=== PATIENT | female | born 1940 | race African-American/Black ===

== ENCOUNTER → 2017-01-12 | Outpatient (CLI) | payer OTHER, MEDICAID ==
[2017-01-12 12:57] LABS: BILIRUBIN,URINE NEGATIVE (NEGATIVE); BLOOD/HEMOGLOBIN,URINE NEGATIVE (NEGATIVE); GLUCOSE, URINE NEGATIVE (NEGATIVE); KETONES,URINE NEGATIVE (NEGATIVE); LEUKOCYTE ESTERASE ,URINE NEGATIVE (NEGATIVE); NITRITES,URINE NEGATIVE (NEGATIVE); PROTEIN,URINE NEGATIVE (NEGATIVE); UROBILINOGEN,URINE NORMAL (NORMAL)
[2017-01-12 12:57] LABS: BASOPHILS % (AUTO) 0.5 % (0.2-1.0); EOSINOPHILS # (AUTO) 0.1 x10^3/uL (0.0-0.2); EOSINOPHILS % (AUTO) 0.9 % (0.9-2.9); HEMATOCRIT 32.2 % (36.0-47.0); HEMOGLOBIN 10.7 g/dL (12.0-16.0); LYMPHOCYTES # (AUTO) 3.1 X10^3/uL (1.3-2.9); LYMPHOCYTES % (AUTO) 29.5 % (21.0-51.0); MEAN CORPUSCULAR HEMOGLOBIN 29.3 pg (27.0-34.0); MEAN CORPUSCULAR HGB CONC 33.2 g/dL (33.0-35.0); MEAN PLATELET VOLUME 7.8 fL (7.4-11.0); MONOCYTES # (AUTO) 0.7 x10^3/uL (0.3-0.8); MONOCYTES % (AUTO) 6.9 % (0.0-13.0); NEUTROPHILS # (AUTO) 6.6 x10^3/uL (2.2-4.8); NEUTROPHILS % (AUTO) 62.2 % (42.0-75.0); PLATELET COUNT 323 X10^3/uL (150.0-450.0); RED BLOOD COUNT 3.65 X10^6/uL (3.5-5.4); RED CELL DISTRIBUTION WIDTH 14.6 % (11.6-16.5); WHITE BLOOD COUNT 10.6 X10^3/uL (3.6-10.0)
[2017-01-12 13:07] LABS: APPEARANCE,URINE CLEAR (CLEAR); COLOR,URINE PALE YELLOW (YELLOW); RBC,URINE NONE SEEN /HPF (NEGATIVE); SQUAMOUS EPITHELIAL CELL,UR FEW /HPF (NEGATIVE)
[2017-01-12 13:08] LABS: ALANINE AMINOTRANSFERASE 17 Units/L (12-78); ALBUMIN 3.1 g/dL (3.4-5.0); ALKALINE PHOSPHATASE 91 Units/L (46-116); ASPARTATE AMINO TRANSFERASE 15 Units/L (15-37); BLOOD UREA NITROGEN 23 mg/dL (7-18); CALCIUM 8.5 mg/dL (8.5-10.1); CARBON DIOXIDE 28.5 mmol/L (21-32); CHLORIDE 108 mmol/L (98-107); COR CA(FOR HYPOALB) 9.2 mg/dL (8.5-10.1); CREATININE 1.23 mg/dL (0.55-1.02); GLUCOSE 95 mg/dL (65-99); SODIUM 143 mmol/L (136-145); TOTAL PROTEIN 6.9 g/dL (6.4-8.2); eGFR BLACK RACES 55 (>60); eGFR NON BLACK RACES 45 (>60)
[2017-01-12 13:08] LABS: BACTERIA,URINE NEGATIVE /HPF (NEGATIVE)
--- NOTE | 2017-01-12 13:11 | RAD ---
HISTORY: Preop. Study: PA and lateral chest. Comparison: None. Findings: The trachea is midline. The cardiac silhouette is unremarkable. Ectatic thoracic aorta with calcif ication of the aortic knob. Chronic emphysematous changes. Bibasilar scarring versus atelectasis. No obvious focal consolidation, pleural effusion, or pneumothorax. The bony thorax is unremarkable. IMPRESSION: 1. No acute cardiopulmonary disease. Reported By:
== END ==
LOC: LAB 11:30
PROVIDERS: ATTEND Specialist
DX: Z01.818 Encounter for other preprocedural examination (principal); Z01.810 Encounter for preprocedural cardiovascular examination; Z01.811 Encounter for preprocedural respiratory examination; Z79.899 Other long term (current) drug therapy; Z11.8 Encounter for screening for other infectious and parasitic diseases; M17.12 Unilateral primary osteoarthritis, left knee
CPT/HCPCS: 36415; 71020; 80053; 81001; 85025; 86850; 86900; 86901; 87641; 93005; 93010

== ENCOUNTER 2017-01-16 08:00 | Inpatient (IN) | payer OTHER, MEDICAID ==
[2017-01-16] MEDS ORDERED: D5 LR 1000 ML 1,000 ML IV ONE (08:08)
[2017-01-16] MEDS ORDERED: NS 100 ML IV 100 ML IV ONE ×2 (08:09→17:39)
[2017-01-16] MEDS ORDERED: DILAUDID INJ ONE (08:10)
[2017-01-16] MEDS ORDERED: VANCOMYCIN HCL 500 MG VIAL ONE (08:10)
[2017-01-16] MEDS ORDERED: FENTANYL INJ 250 mcg ONE (08:11)
[2017-01-16] MEDS ORDERED: MARCAINE 0.25% WITH EPI IJ ONE (08:20)
[2017-01-16 08:53] VITALS: BMI 29.2
[2017-01-16] MEDS ORDERED: NORCURON INJ 10 MG VIAL ONE (09:37)
[2017-01-16] MEDS ORDERED: VERSED ONE (09:37)
[2017-01-16] MEDS ORDERED: ZOFRAN INJ 4 MG VIAL ONE (09:37)
[2017-01-16] MEDS ORDERED: NEOSTIGMINE INJ ONE (09:37)
[2017-01-16] MEDS ORDERED: QUELICIN (OR ANECTINE) ONE (09:37)
[2017-01-16] MEDS ORDERED: ULTANE GAS IN ONE (09:37)
[2017-01-16] MEDS ORDERED: ROBINUL ONE (09:37)
[2017-01-16] MEDS ORDERED: DIPRIVAN VIAL ONE (09:37)
[2017-01-16] MEDS ORDERED: SUPRANE IN ONE (09:37)
--- NOTE | 2017-01-16 10:47 | DR.CONSULT ---
Consult - Consultation for Day of: Date: 01/16/17 - Chief Complaint Chief Complaint: They can't get an IV - Allergies Allergies/Adverse Reactions: Allergies Allergy/AdvReac Type Severity Reaction Status Date / Time acetaminophen Allergy Severe NAUSEA Verified 01/16/17 08:56 [From Darvocet-N] codeine Allergy Severe RASH Verified 01/16/17 08:56 propoxyphene Allergy Severe NAUSEA Verified 01/16/17 08:56 [From Darvocet-N] quinine Allergy Severe ANAPHALEXIS Verified 01/16/17 08:56 REACTION Penicillins AdvReac Intermediate RASH Verified 01/16/17 08:56 Sulfa (Sulfonamide AdvReac Intermediate RASH Verified 01/16/17 08:56 Antibiotics) [SULFA] tramadol [From Ultram] AdvReac Intermediate NAUSEA Verified 01/16/17 08:56 - Past Surgical History Surgical History: Appendectomy, Hysterectomy - Family History Family Medical History: Cancer, Heart Failure, Hypertension - Social History Does patient currently use any type of tobacco product: No Have you used tobacco products in the last 12 months: No Type of Tobacco Use: None Does any household member use tobacco: No Alcohol Use: Rarely Drug Use: None - Medications Home Medications: Allopurinol [ZYLOPRIM tab 100 mg *] 100 mg PO DAILY 01/16/17 [History Confirmed 01/16/17] Hydrocodone-Acet 10/325 mg [[place] 10/325 Tab] 1 tab PO Q6H PRN 01/16/17 [ History Confirmed 01/16/17] Levothyroxine Sodium [SYNTHROID 50 mcg *] 1 tab PO DAILYAC 01/16/17 [History Confirmed 01/16/17] Metoprolol Succinate [Toprol Xl] 25 mg PO BID 01/16/17 [History Confirmed ] Mirtazapine 15 mg PO DAILY 01/16/17 [History Confirmed 01/16/17] Omeprazole [Prilosec] 20 mg PO BID 01/16/17 [History Confirmed 01/16/17] Ondansetron HCl [Zofran Tab 4 mg] 4 mg PO DAILY PRN 01/16/17 [History Confirmed 01/16/17] Tizanidine HCl [Zanaflex 4 mg] 4 mg PO QID PRN 01/16/17 [History Confirmed 01/16] - Review of Systems Constitutional: No Symptoms Reported Eyes: No Symptoms Reported Respiratory: No Symptoms Reported Cardiovascular: See HPI Gastrointestinal: No Symptoms Reported Genitourinary: No Symptoms Reported Musculoskeletal: Leg Pain Skin: No Symptoms Reported Neurological: No Symptoms Reported - Physical Exam Vital Signs: Temperature 97.7 F Pulse Rate 68 Respiratory Rate 16 Blood Pressure 161/89 O2 Sat by Pulse Oximetry 98 Oriented: Normal, Time, Person, Place Eyes: Normal Ear: Normal Nose: Normal Throat: Normal Respiratory: Clear Throughout Cardiovascular: Normal : Normal Auscultation: Bowel Sounds: Normal Palpation: Normal Tenderness: Normal Skin: Bruising Musculoskeletal: Normal Psychiatric: Normal Mood Description: Calm Affect: Angry Speech Pattern: Clear - Plan Plan: Poor Venous Access. PICC Procedures (ALL) - Central Line Placement PCM.CLCO: written consent Time out performed: Yes Patient placed pm monitor/pulse ox: Yes prep: mask, gown, gloves Centrial line prep: chlorhexidine scrub Local anesthsia used: lidocaine 2% Ultrasound used for placement: Yes (Left bassicillic Patent ) Central line lumen ininserted: double (5Fr PICC power) Post procedure: good blood return, all ports aspirated, flushed,capped, sterile dressing applied Post procedure xray: tip oc catheter in good position, no pneumothorax seen Patient tolerated procedure: Yes Complications: none
--- NOTE | 2017-01-16 11:00 | RAD ---
HISTORY: PICC line placement. Study: Portable chest. Comparison: Chest x-ray dated January 12, 2017. Findings: Interval placement of a left PICC line whose tip overlies the takeoff of the left subclavian vein. T he trachea is midline. The cardiac silhouette is unremarkable. No obvious focal consolidation, ple ural effusion, or pneumothorax. The bony thorax is unremarkable. IMPRESSION: 1. No acute cardiopulmonary disease. 2. PICC line that should be advanced approximately 5 cm. Reported By:
[2017-01-16] MEDS ORDERED: NS IRRIGATION 3000 ML 3,000 ML with BACITRACIN VIAL 50,000 UNT IR ONE ×4 (11:05)
[2017-01-16] MEDS ORDERED: NS IRRIGATION 1000 ML 1,000 ML with BACITRACIN VIAL 50,000 UNT IR ONE ×2 (11:05)
[2017-01-16] MEDS ORDERED: PHENERGAN INJ 25 MG IVP PRN (13:12)
[2017-01-16] MEDS ORDERED: DILAUDID INJ IVP PRN (13:12)
[2017-01-16] MEDS ORDERED: BENADRYL INJ 50 MG VIAL IVP PRN (13:12)
[2017-01-16] MEDS ORDERED: ZOFRAN INJ 4 MG VIAL IVP PRN (13:12)
[2017-01-16] MEDS ORDERED: REGLAN INJ 10 MG VIAL IVP PRN (13:12)
[2017-01-16] MEDS ORDERED: [UNRECOGNIZED DRUG - OTHER] IVP PRN (13:15)
[2017-01-16] MEDS ORDERED: NARCAN INJ IVP ONE ×3 (13:20→17:35)
[2017-01-16] MEDS: NARCAN INJ ONE ×2 (13:30→14:20)
[2017-01-16] MEDS ORDERED: NAROPIN EPIDURAL 0.2% 100 ML ONE (13:51)
[2017-01-16] MEDS ORDERED: NAROPIN EPIDURAL 0.2% 400 MG, NS 250 ML IV 200 ML EPI PRN ×2 (15:00)
[2017-01-16] MEDS ORDERED: Q PUMP EPI ONE (15:00)
[2017-01-16] MEDS ORDERED: NS 250 ML IV 250 ML IV ONE ×2 (15:19→22:31)
[2017-01-16 16:57] LABS: ABG BASE EXCESS 2.6 mmol/L (-2.0-2.0)
[2017-01-16 16:58] LABS: ABG ALLEN TEST POS
[2017-01-16] MEDS ORDERED: NARCAN INJ ONE (17:05)
[2017-01-16] MEDS ORDERED: NS 1000 ML 1,000 ML ONE (17:39)
[2017-01-16] MEDS ORDERED: NARCAN INJ 2 MG in NS 500 ML IV 500 ML IV ONE (17:50)
--- NOTE | 2017-01-16 18:09 | DR.CONSULT ---
Consult - Consultation for Day of: Date: 01/16/17 - Chief Complaint Chief Complaint: 76 FEMALE S/P LEFT TOTAL KNEE REPLACEMENT PER DR BENITES, WILL CONTINUE HOME MEDS, POST ORTHO PLAN OF CARE, PT, WOUND CARE. 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 - Allergies Allergies/Adverse Reactions: Allergies Allergy/AdvReac Type Severity Reaction Status Date / Time acetaminophen Allergy Severe NAUSEA Verified 01/16/17 08:56 [From Darvocet-N] codeine Allergy Severe RASH Verified 01/16/17 08:56 propoxyphene Allergy Severe NAUSEA Verified 01/16/17 08:56 [From Darvocet-N] quinine Allergy Severe ANAPHALEXIS Verified 01/16/17 08:56 REACTION Penicillins AdvReac Intermediate RASH Verified 01/16/17 08:56 Sulfa (Sulfonamide AdvReac Intermediate RASH Verified 01/16/17 08:56 Antibiotics) [SULFA] tramadol [From Ultram] AdvReac Intermediate NAUSEA Verified 01/16/17 08:56 - Past Medical History Past Medical History: Arthritis, GERD, Hypertension, Hypothyroidism - Past Surgical History Surgical History: Appendectomy, Hysterectomy - Family History Family Medical History: Cancer, Heart Failure, Hypertension - Social History Does patient currently use any type of tobacco product: No Have you used tobacco products in the last 12 months: No Type of Tobacco Use: None Does any household member use tobacco: No Alcohol Use: Rarely Drug Use: None - Medications Home Medications: Allopurinol [ZYLOPRIM tab 100 mg *] 100 mg PO DAILY 01/16/17 [History Confirmed 01/16/17] Hydrocodone-Acet 10/325 mg [[place] 10/325 Tab] 1 tab PO Q6H PRN 01/16/17 [ History Confirmed 01/16/17] Levothyroxine Sodium [SYNTHROID 50 mcg *] 1 tab PO DAILYAC 01/16/17 [History Confirmed 01/16/17] Metoprolol Succinate [Toprol Xl] 25 mg PO BID 01/16/17 [History Confirmed ] Mirtazapine 15 mg PO DAILY 01/16/17 [History Confirmed 01/16/17] Omeprazole [Prilosec] 20 mg PO BID 01/16/17 [History Confirmed 01/16/17] Ondansetron HCl [Zofran Tab 4 mg] 4 mg PO DAILY PRN 01/16/17 [History Confirmed 01/16/17] Tizanidine HCl [Zanaflex 4 mg] 4 mg PO QID PRN 01/16/17 [History Confirmed 01/16] - Review of Systems Constitutional: No Symptoms Reported Eyes: No Symptoms Reported ENT: No Symptoms Reported Respiratory: No Symptoms Reported Cardiovascular: No Symptoms Reported Gastrointestinal: No Symptoms Reported Genitourinary: No Symptoms Reported Musculoskeletal: Leg Pain Skin: Wound Neurological: No Symptoms Reported - Physical Exam Vital Signs: Temperature 97.2 F Pulse Rate 60 Respiratory Rate 20 Blood Pressure 131/70 O2 Sat by Pulse Oximetry 94 Oriented: Person Eyes: Normal Ear: Normal Nose: Normal Throat: Normal Respiratory: RLL Diminished, LLL Diminished Cardiovascular: Normal : Normal Auscultation: Bowel Sounds: Normal Palpation: Normal Skin: Wound Musculoskeletal: Left, Knee Speech Pattern: Clear, Appropriate - Plan Plan: RESUME HOME MEDICATION FOR HTN, HYPOTHYROIDISM, AND GERD. FOLLOW ORTHO POST OPERATIVE PLAN OF CARE
[2017-01-16] MEDS: NS 1000 ML 1,000 ML IV SCH (18:20)
[2017-01-16] MEDS ORDERED: NS IV ONE (18:40)
[2017-01-16] MEDS ORDERED: NARCAN IV ONE (18:40)
[2017-01-16 19:15] LABS: ABG BASE EXCESS 2.2 mmol/L (-2.0-2.0); ABG HCO3 28.7 mmol/L (22-26)
[2017-01-16 19:16] LABS: ABG ALLEN TEST POS
[2017-01-16] MEDS: ZOFRAN INJ 4 MG VIAL IVP PRN (19:37)
[2017-01-16] MEDS: PriLOSEC PO SCH (21:08)
[2017-01-16] MEDS: TOPROL XL PO SCH (21:08)
[2017-01-16] MEDS: VANCOMYCIN 1 GM PREMIX (ADDVANTAGE) 250 ML IV SCH (21:08)
[2017-01-17 07:43] LABS: BASOPHILS # (AUTO) 0.1 X10^3/uL (0.0-0.1); EOSINOPHILS # (AUTO) 0.1 x10^3/uL (0.0-0.2); EOSINOPHILS % (AUTO) 1.1 % (0.9-2.9); HEMOGLOBIN 11.5 g/dL (12.0-16.0); LYMPHOCYTES # (AUTO) 0.9 X10^3/uL (1.3-2.9); MEAN CORPUSCULAR HEMOGLOBIN 28.9 pg (27.0-34.0); MEAN PLATELET VOLUME 7.6 fL (7.4-11.0); RED BLOOD COUNT 3.97 X10^6/uL (3.5-5.4)
[2017-01-17 07:44] LABS: BLOOD UREA NITROGEN 17 mg/dL (7-18); CARBON DIOXIDE 30.3 mmol/L (21-32); CHLORIDE 109 mmol/L (98-107); CREATININE 1.22 mg/dL (0.55-1.02); GLUCOSE 82 mg/dL (65-99); SODIUM 146 mmol/L (136-145); eGFR BLACK RACES 55 (>60); eGFR NON BLACK RACES 46 (>60)
[2017-01-17 07:51] LABS: BASOPHILS % (AUTO) 0.4 % (0.2-1.0); HEMATOCRIT 35.1 % (36.0-47.0); LYMPHOCYTES % (AUTO) 6.7 % (21.0-51.0); MEAN CORPUSCULAR HGB CONC 32.8 g/dL (33.0-35.0); MEAN CORPUSCULAR VOLUME 88.3 fL (80.0-100.0); MONOCYTES # (AUTO) 0.9 x10^3/uL (0.3-0.8); MONOCYTES % (AUTO) 6.8 % (0.0-13.0); NEUTROPHILS # (AUTO) 11.8 x10^3/uL (2.2-4.8); PLATELET COUNT 160 X10^3/uL (150.0-450.0); RED CELL DISTRIBUTION WIDTH 14.7 % (11.6-16.5)
[2017-01-17 08:17] LABS: WHITE BLOOD COUNT 13.8 X10^3/uL (3.6-10.0)
[2017-01-17 08:19] LABS: HYPOCHROMASIA SLIGHT; PLATELET MORPHOLOGY COMMENT NORMAL (NORMAL)
[2017-01-17] MEDS: LOVENOX INJ 30 MG SYR SC SCH ×2 (08:33→20:32)
[2017-01-17] MEDS: VANCOMYCIN 1 GM PREMIX (ADDVANTAGE) 250 ML IV SCH (08:33)
[2017-01-17] MEDS: TOPROL XL PO SCH ×2 (08:34→20:32)
[2017-01-17] MEDS: PriLOSEC PO SCH ×2 (08:34→20:33)
[2017-01-17] MEDS ORDERED: PATIENT'S HOME MEDICATION (Tizanidine Hcl [Zanaflex 4 Mg] 4 MG) PO PRN (09:38)
[2017-01-17] MEDS: ZYLOPRIM PO SCH (10:30)
[2017-01-17] MEDS: REMERON PO SCH (10:33)
[2017-01-17] MEDS: ZOFRAN INJ 4 MG VIAL IVP PRN ×2 (11:41→20:36)
[2017-01-17] MEDS: NORCO 10/325 TAB PO PRN (11:48)
[2017-01-17] MEDS: SYNTHROID 50 mcg TAB PO SCH (17:37)
--- NOTE | 2017-01-17 17:56 | RAD ---
HISTORY: PICC line placement Study: Portable chest Comparison: 01/16/2017 Findings: The heart is normal. The pulmonary vessels are normal. No consolidation or effusion is seen. There i s no pneumothorax and the bones are intact. IMPRESSION: Status post removal of the left PICC line otherwise , stable with no acute abnormality seen. Reported By:
[2017-01-17] MEDS: NS 1000 ML 1,000 ML IV SCH (18:31)
[2017-01-17] MEDS ORDERED: XYLOCAINE 1 % (PLAIN) ONE (19:08)
--- NOTE | 2017-01-17 19:50 | RAD ---
HISTORY: 76-year-old female status post PICC line placement. Study: Frontal view of the chest. Comparison: Chest radiograph this date at 5:50 p.m.. Findings: Right upper extremity PICC with distal tip overlying the confluence of the subclavian and internal j ugular veins on the right. This is within the central venous system, however, repositioning is recom mended. No other significant interval change. IMPRESSION: 1. Right upper extremity PICC line as described above, repositioning recommended. Reported By:
--- NOTE | 2017-01-17 20:23 | DR.H&P ---
H&P - History & Physical for Day of: H&P Date: 01/17/17 - Chief Complaint Chief Complaint: no iv access - Allergies Allergies/Adverse Reactions: Allergies Allergy/AdvReac Type Severity Reaction Status Date / Time acetaminophen Allergy Severe NAUSEA Verified 01/16/17 08:56 [From Darvocet-N] codeine Allergy Severe RASH Verified 01/16/17 08:56 propoxyphene Allergy Severe NAUSEA Verified 01/16/17 08:56 [From Darvocet-N] quinine Allergy Severe ANAPHALEXIS Verified 01/16/17 08:56 REACTION Penicillins AdvReac Intermediate RASH Verified 01/16/17 08:56 Sulfa (Sulfonamide AdvReac Intermediate RASH Verified 01/16/17 08:56 Antibiotics) [SULFA] tramadol [From Ultram] AdvReac Intermediate NAUSEA Verified 01/16/17 08:56 - History of Present Illness History of Present Illness: s/p tka. left picc inserted in the immediate preoperative period for i.v. access. catheter was trimmed to 40cm and drerssed with 5cm out. was called at 1730 today to access possible nonfunctioning picc. CXR was ordered and read as picc removal. I arrived and found picc to be in 3 overlapping loops approximately 3cm in diameter under a tegaderm with 6cm remaining under the skin. the picc was removed and right picc placed (see addendum for picc note). - Past Medical History Past Medical History: Arthritis, GERD, Hypertension, Hypothyroidism - Past Surgical History Surgical History: Appendectomy, Hysterectomy - Family History Family Medical History: Cancer, Heart Failure, Hypertension - Social History Does patient currently use any type of tobacco product: No Have you used tobacco products in the last 12 months: No Type of Tobacco Use: None Does any household member use tobacco: No Alcohol Use: Rarely Drug Use: None - Medications Home Medications: Allopurinol [ZYLOPRIM tab 100 mg *] 100 mg PO DAILY 01/16/17 [History Confirmed 01/16/17] Hydrocodone-Acet 10/325 mg [[place] 10/325 Tab] 1 tab PO Q6H PRN 01/16/17 [ History Confirmed 01/16/17] Levothyroxine Sodium [SYNTHROID 50 mcg *] 1 tab PO DAILYAC 01/16/17 [History Confirmed 01/16/17] Metoprolol Succinate [Toprol Xl] 25 mg PO BID 01/16/17 [History Confirmed ] Mirtazapine 15 mg PO DAILY 01/16/17 [History Confirmed 01/16/17] Omeprazole [Prilosec] 20 mg PO BID 01/16/17 [History Confirmed 01/16/17] Ondansetron HCl [Zofran Tab 4 mg] 4 mg PO DAILY PRN 01/16/17 [History Confirmed 01/16/17] Tizanidine HCl [Zanaflex 4 mg] 4 mg PO QID PRN 01/16/17 [History Confirmed 01/16] - Review of Systems Skin: Bruising (left upper extrem), Other (4x6cm bruise at left picc site. no tenderness.) - Physical Exam Vital Signs: Temperature 98.0 F Pulse Rate [Right Brachial] 73 Pulse Rate 60 Respiratory Rate 16 Blood Pressure [Right Arm] 162/72 Blood Pressure 131/70 O2 Sat by Pulse Oximetry 95 Oriented: Person Cardiovascular: Normal : Normal Tenderness: Normal - Assessment/Plan (1) S/P total knee arthroplasty Qualifiers: Laterality: L Status: Acute Plan: picc insertion right side Procedures (ALL) - Central Line Placement PCM.CLCO: written consent Time out performed: Yes Patient placed pm monitor/pulse ox: Yes MD prep: mask, gown, gloves, other Centrial line prep: chlorhexidine scrub Local anesthsia used: lidocane 1% (1cc) Ultrasound used for placement: Yes (right basillic) Central line lumen ininserted: double (trimmed to 45cm. 11cm out initially, pulled 3cm to 14cm out after cxr. good blood return.) Post procedure: good blood return, all ports aspirated, flushed,capped, sterile dressing applied Post procedure xray: tip oc catheter in good position, no pneumothorax seen Patient tolerated procedure: Yes Complications: none
[2017-01-18 05:47] LABS: BASOPHILS % (AUTO) 0.3 % (0.2-1.0); EOSINOPHILS # (AUTO) 0.3 x10^3/uL (0.0-0.2); EOSINOPHILS % (AUTO) 2.8 % (0.9-2.9); HEMATOCRIT 27.7 % (36.0-47.0); HEMOGLOBIN 9.1 g/dL (12.0-16.0); LYMPHOCYTES % (AUTO) 9.9 % (21.0-51.0); MEAN CORPUSCULAR HEMOGLOBIN 29.3 pg (27.0-34.0); MEAN CORPUSCULAR HGB CONC 32.9 g/dL (33.0-35.0); MEAN CORPUSCULAR VOLUME 89.2 fL (80.0-100.0); MONOCYTES # (AUTO) 0.8 x10^3/uL (0.3-0.8); MONOCYTES % (AUTO) 8.2 % (0.0-13.0); NEUTROPHILS # (AUTO) 7.7 x10^3/uL (2.2-4.8); NEUTROPHILS % (AUTO) 78.8 % (42.0-75.0); PLATELET COUNT 181 X10^3/uL (150.0-450.0); RED CELL DISTRIBUTION WIDTH 14.6 % (11.6-16.5); WHITE BLOOD COUNT 9.8 X10^3/uL (3.6-10.0)
[2017-01-18 07:14] LABS: CARBON DIOXIDE 27.4 mmol/L (21-32); CREATININE 1.2 mg/dL (0.55-1.02)
[2017-01-18] MEDS: LOVENOX INJ 30 MG SYR SC SCH ×2 (08:10→21:17)
[2017-01-18] MEDS: NS 1000 ML 1,000 ML IV SCH ×2 (08:10→17:19)
[2017-01-18] MEDS: PriLOSEC PO SCH ×2 (08:13→21:16)
[2017-01-18] MEDS: REMERON PO SCH (08:14)
[2017-01-18] MEDS: TOPROL XL PO SCH ×2 (08:14→21:16)
[2017-01-18] MEDS: ZYLOPRIM PO SCH (08:14)
[2017-01-18] MEDS: ZOFRAN TAB 4 MG PO PRN ×2 (08:29→23:13)
[2017-01-18] MEDS: NORCO 10/325 TAB PO PRN ×3 (08:29→23:13)
--- NOTE | 2017-01-18 13:04 | PCM.PROG ---
Progress Note - Progress Note for Day of Date: 01/18/17 - Subjective Subjective: left knee pain, otherwise states she feels well. 76WF ADMITTED FOR LEFT KNEE TOTAL REPLACEMET. PLAN TO CONTINUE ORTHO POST OPERATIVE PLAN OF CARE AND CHANGE TO FLOOR STATUS TODAY. - Past Medical Family Social History Past Med/Fam/Surg Hx: No changes since H&P Allergies: Allergies acetaminophen [From Darvocet-N] Allergy (Severe, Verified 01/16/17 08:56) NAUSEA codeine Allergy (Severe, Verified 01/16/17 08:56) RASH propoxyphene [From Darvocet-N] Allergy (Severe, Verified 01/16/17 08:56) NAUSEA quinine Allergy (Severe, Verified 01/16/17 08:56) ANAPHALEXIS REACTION Penicillins Adverse Reaction (Intermediate, Verified 01/16/17 08:56) RASH Sulfa (Sulfonamide Antibiotics) [SULFA] Adverse Reaction (Intermediate, Verified 01/16/17 08:56) RASH tramadol [From Ultram] Adverse Reaction (Intermediate, Verified 01/16/17 08:56) NAUSEA - Review of Systems ROS: No change since H&P - Vital Signs and I&O's Vital Signs: Temperature 98.4 F Pulse Rate [Right Brachial] 76 Pulse Rate 83 Respiratory Rate 24 Blood Pressure [Right Arm] 115/57 Blood Pressure 131/70 O2 Sat by Pulse Oximetry 100 Intake and Output: Intake & Output 01/16/17 01/17/17 01/18/17 01/19/17 11:59 11:59 11:59 11:59 Intake Total 8801 5100 Output Total 0129 1153 Balance -8500 -321 - Physical Exam Oriented: Person Eyes: Normal Ear: Normal Nose: Normal Throat: Normal Respiratory: Normal Cardiovascular: Normal : Normal Auscultation: Bowel Sounds: Normal Tenderness: Normal Skin: Wound Musculoskeletal: Left, Knee Psychiatric: Normal Mood Description: Calm Affect: Angry Speech Pattern: Clear - Laboratory and Diagnostics Result Diagrams: 01/18/17 04:10 01/18/17 04:10 Labs: Laboratory WBC 9.8 X10^3/uL (3.6-10.0) 01/18/17 04:10 RBC 3.10 X10^6/uL (3.5-5.4) L 01/18/17 04:10 Hgb 9.1 g/dL (12.0-16.0) L 01/18/17 04:10 Hct 27.7 % (36.0-47.0) L 01/18/17 04:10 MCV 89.2 fL (80.0-100.0) 01/18/17 04:10 MCH 29.3 pg (27.0-34.0) 01/18/17 04:10 MCHC 32.9 g/dL (33.0-35.0) L 01/18/17 04:10 RDW 14.6 % (11.6-16.5) 01/18/17 04:10 Plt Count 181 X10^3/uL (150.0-450.0) 01/18/17 04:10 Plt Count Comment Adequate (ADEQUATE) 01/17/17 07:15 MPV 8.0 fL (7.4-11.0) 01/18/17 04:10 Neut % 78.8 % (42.0-75.0) H 01/18/17 04:10 Lymph % 9.9 % (21.0-51.0) L 01/18/17 04:10 [place] % 8.2 % (0.0-13.0) 01/18/17 04:10 Eos % 2.8 % (0.9-2.9) 01/18/17 04:10 Baso % 0.3 % (0.2-1.0) 01/18/17 04:10 Neut # 7.7 x10^3/uL (2.2-4.8) H 01/18/17 04:10 Lymph # 1.0 X10^3/uL (1.3-2.9) L 01/18/17 04:10 [place] # 0.8 x10^3/uL (0.3-0.8) 01/18/17 04:10 Eos # 0.3 x10^3/uL (0.0-0.2) H 01/18/17 04:10 Baso # 0.0 X10^3/uL (0.0-0.1) 01/18/17 04:10 Absolute Nucleated RBC 0.0 /100WBC 01/18/17 04:10 Plt Clumps, EDTA Few 01/17/17 07:15 Plt Morphology Comment Normal (NORMAL) 01/17/17 07:15 RBC Morphology Abnormal (NORMAL) A 01/17/17 07:15 Hypochromasia Slight A 01/17/17 07:15 Sample Site Right radial 01/16/17 19:05 ABG pH 7.350 (7.35-7.45) 01/16/17 19:05 ABG pCO2 52.0 mmHg (35.0-45.0) H* 01/16/17 19:05 ABG pO2 90.0 mmHg (80.0-100.0) 01/16/17 19:05 ABG HCO3 28.7 mmol/L (22-26) H 01/16/17 19:05 ABG O2 Saturation 97.0 % (90-100) 01/16/17 19:05 ABG Base Excess 2.2 mmol/L (-2.0-2.0) H 01/16/17 19:05 Aayush Test Pos 01/16/17 19:05 A-a Gradient 73.0 mmHg 01/16/17 19:05 FiO2 32.000 01/16/17 19:05 Blood Gas Comments Shahram well aw 01/16/17 19:05 Sodium 142 mmol/L (136-145) 01/18/17 04:10 Corrected Sodium 143 mmol/L (136-145) 01/18/17 04:10 Potassium 4.4 mmol/L (3.5-5.1) 01/18/17 04:10 Chloride 108 mmol/L (98-107) H 01/18/17 04:10 Carbon Dioxide 27.4 mmol/L (21-32) 01/18/17 04:10 BUN 13 mg/dL (7-18) 01/18/17 04:10 Creatinine 1.20 mg/dL (0.55-1.02) H 01/18/17 04:10 Est GFR (MDRD) Af Amer 56 (>60) L 01/18/17 04:10 Est GFR (MDRD) Non-Af 47 (>60) L 01/18/17 04:10 Glucose 129 mg/dL (65-99) H 01/18/17 04:10 Calcium 8.0 mg/dL (8.5-10.1) L 01/18/17 04:10 - Plan (1) S/P total knee arthroplasty Status: Acute Qualifiers: Laterality: L Plan: CONTINUE WOUND CARE, PT, AM LABS (2) CHF (congestive heart failure) Status: Chronic Qualifiers: Congestive heart failure type: C Congestive heart failure chronicity: C (3) COPD (chronic obstructive pulmonary disease) Status: Chronic Qualifiers: COPD type: C Chronic bronchitis type: C Emphysema type: E (4) GERD (gastroesophageal reflux disease) Status: Chronic Qualifiers: Esophagitis presence: E (5) HTN (hypertension) Status: Chronic Qualifiers: Hypertension type: H (6) Hypothyroidism Status: Chronic Qualifiers: Hypothyroidism type: H
[2017-01-18] MEDS: ZOFRAN INJ 4 MG VIAL IVP PRN (15:26)
[2017-01-18] MEDS: SYNTHROID 50 mcg TAB PO SCH (16:52)
[2017-01-18] MEDS: COLACE CAP 100 MG PO SCH (21:16)
[2017-01-18] MEDS: MILK OF MAGNESIA PO SCH (21:16)
[2017-01-18] MEDS: ZANAFLEX PO PRN (21:16)
[2017-01-19 06:11] LABS: BASOPHILS % (AUTO) 0.5 % (0.2-1.0); EOSINOPHILS # (AUTO) 0.3 x10^3/uL (0.0-0.2); EOSINOPHILS % (AUTO) 3.4 % (0.9-2.9); HEMATOCRIT 23.4 % (36.0-47.0); HEMOGLOBIN 7.8 g/dL (12.0-16.0); LYMPHOCYTES # (AUTO) 1.7 X10^3/uL (1.3-2.9); LYMPHOCYTES % (AUTO) 18.5 % (21.0-51.0); MEAN CORPUSCULAR HEMOGLOBIN 29.8 pg (27.0-34.0); MEAN CORPUSCULAR HGB CONC 33.4 g/dL (33.0-35.0); MEAN CORPUSCULAR VOLUME 89.2 fL (80.0-100.0); MEAN PLATELET VOLUME 8.7 fL (7.4-11.0); MONOCYTES # (AUTO) 0.6 x10^3/uL (0.3-0.8); NEUTROPHILS # (AUTO) 6.5 x10^3/uL (2.2-4.8); NEUTROPHILS % (AUTO) 70.6 % (42.0-75.0); PLATELET COUNT 169 X10^3/uL (150.0-450.0); RED BLOOD COUNT 2.62 X10^6/uL (3.5-5.4); RED CELL DISTRIBUTION WIDTH 14.4 % (11.6-16.5); WHITE BLOOD COUNT 9.3 X10^3/uL (3.6-10.0)
[2017-01-19 06:25] LABS: BLOOD UREA NITROGEN 17 mg/dL (7-18); CALCIUM 7.9 mg/dL (8.5-10.1); CARBON DIOXIDE 30.2 mmol/L (21-32); CHLORIDE 108 mmol/L (98-107); CREATININE 1.68 mg/dL (0.55-1.02); GLUCOSE 100 mg/dL (65-99); SODIUM 142 mmol/L (136-145); eGFR BLACK RACES 38 (>60); eGFR NON BLACK RACES 32 (>60)
[2017-01-19 06:53] LABS: HYPOCHROMASIA SLIGHT; PLATELET MORPHOLOGY COMMENT NORMAL (NORMAL)
[2017-01-19] MEDS: NORCO 10/325 TAB PO PRN ×2 (07:39→22:23)
[2017-01-19] MEDS: ZOFRAN INJ 4 MG VIAL IVP PRN (07:40)
[2017-01-19] MEDS ORDERED: LASIX IVP ONE ×2 (08:51→13:17)
[2017-01-19] MEDS ORDERED: DULCOLAX TAB EC 5 MG PO ONE (08:58)
[2017-01-19] MEDS: LOVENOX INJ 30 MG SYR SC SCH ×2 (09:19→22:09)
[2017-01-19] MEDS: REMERON PO SCH (09:20)
[2017-01-19] MEDS: ZYLOPRIM PO SCH (09:20)
[2017-01-19] MEDS: TOPROL XL PO SCH ×2 (09:21→22:09)
[2017-01-19] MEDS: PriLOSEC PO SCH ×2 (09:21→22:09)
[2017-01-19] MEDS ORDERED: NS 500 ML IV 500 ML IV ONE (11:31)
[2017-01-19] MEDS ORDERED: PHENERGAN TAB 25 MG PO ONE (11:38)
[2017-01-19] MEDS ORDERED: TYLENOL 325 MG TAB PO ONE (11:38)
[2017-01-19] MEDS ORDERED: MOTRIN TAB 800 MG PO ONE ×2 (11:40)
[2017-01-19] MEDS ORDERED: LASIX ONE (13:07)
[2017-01-19] MEDS: NYSTATIN POWDER TOP SCH ×2 (14:30→22:13)
--- NOTE | 2017-01-19 18:00 | PCM.PROG ---
Progress Note - Progress Note for Day of Date: 01/19/17 - Subjective Subjective: left knee pain, otherwise states she feels well. 76WF ADMITTED FOR LEFT KNEE TOTAL REPLACEMET. PLAN TO CONTINUE ORTHO POST OPERATIVE PLAN OF CARE. patient's hemoglobin dropped this morning from 7.8-9.1 on Monday. Patient denies any associated symptoms with anemia. Plan to type and cross and transfuse packed red blood cells, followed by Lasix dose repeat a.m. CBC CMP and chest x-ray - Past Medical Family Social History Past Med/Fam/Surg Hx: No changes since H&P Allergies: Allergies acetaminophen [From Darvocet-N] Allergy (Severe, Verified 01/16/17 08:56) NAUSEA codeine Allergy (Severe, Verified 01/16/17 08:56) RASH propoxyphene [From Darvocet-N] Allergy (Severe, Verified 01/16/17 08:56) NAUSEA quinine Allergy (Severe, Verified 01/16/17 08:56) ANAPHALEXIS REACTION Penicillins Adverse Reaction (Intermediate, Verified 01/16/17 08:56) RASH Sulfa (Sulfonamide Antibiotics) [SULFA] Adverse Reaction (Intermediate, Verified 01/16/17 08:56) RASH tramadol [From Ultram] Adverse Reaction (Intermediate, Verified 01/16/17 08:56) NAUSEA - Review of Systems ROS: No change since H&P - Vital Signs and I&O's Vital Signs: Temperature 99.2 F Pulse Rate [Right Brachial] 80 Pulse Rate 83 Respiratory Rate 18 Blood Pressure [Right Arm] 164/72 Blood Pressure 131/70 O2 Sat by Pulse Oximetry 100 Intake and Output: Intake & Output 01/17/17 01/18/17 01/19/17 01/20/17 11:59 11:59 11:59 11:59 Intake Total 3704 1790 876 600 Output Total 8661 9802 1000 Balance -0176 -825 -124 600 - Physical Exam Oriented: Person Eyes: Normal Ear: Normal Nose: Normal Throat: Normal Respiratory: Normal Cardiovascular: Normal : Normal Auscultation: Bowel Sounds: Normal Tenderness: Normal Skin: Wound Musculoskeletal: Left, Knee Psychiatric: Normal Mood Description: Calm Affect: Angry Speech Pattern: Clear - Laboratory and Diagnostics Result Diagrams: 01/19/17 03:50 01/19/17 03:50 Labs: Laboratory WBC 9.3 X10^3/uL (3.6-10.0) 01/19/17 03:50 RBC 2.62 X10^6/uL (3.5-5.4) L 01/19/17 03:50 Hgb 7.8 g/dL (12.0-16.0) L 01/19/17 03:50 Hct 23.4 % (36.0-47.0) L 01/19/17 03:50 MCV 89.2 fL (80.0-100.0) 01/19/17 03:50 MCH 29.8 pg (27.0-34.0) 01/19/17 03:50 MCHC 33.4 g/dL (33.0-35.0) 01/19/17 03:50 RDW 14.4 % (11.6-16.5) 01/19/17 03:50 Plt Count 169 X10^3/uL (150.0-450.0) 01/19/17 03:50 Plt Count Comment Adequate (ADEQUATE) 01/19/17 03:50 MPV 8.7 fL (7.4-11.0) 01/19/17 03:50 Neut % 70.6 % (42.0-75.0) 01/19/17 03:50 Lymph % 18.5 % (21.0-51.0) L 01/19/17 03:50 [place] % 7.0 % (0.0-13.0) 01/19/17 03:50 Eos % 3.4 % (0.9-2.9) H 01/19/17 03:50 Baso % 0.5 % (0.2-1.0) 01/19/17 03:50 Neut # 6.5 x10^3/uL (2.2-4.8) H 01/19/17 03:50 Lymph # 1.7 X10^3/uL (1.3-2.9) 01/19/17 03:50 [place] # 0.6 x10^3/uL (0.3-0.8) 01/19/17 03:50 Eos # 0.3 x10^3/uL (0.0-0.2) H 01/19/17 03:50 Baso # 0.0 X10^3/uL (0.0-0.1) 01/19/17 03:50 Absolute Nucleated RBC 0.0 /100WBC 01/19/17 03:50 Plt Clumps, EDTA Few 01/17/17 07:15 Plt Morphology Comment Normal (NORMAL) 01/19/17 03:50 RBC Morphology Abnormal (NORMAL) A 01/19/17 03:50 Hypochromasia Slight A 01/19/17 03:50 Sample Site Right radial 01/16/17 19:05 ABG pH 7.350 (7.35-7.45) 01/16/17 19:05 ABG pCO2 52.0 mmHg (35.0-45.0) H* 01/16/17 19:05 ABG pO2 90.0 mmHg (80.0-100.0) 01/16/17 19:05 ABG HCO3 28.7 mmol/L (22-26) H 01/16/17 19:05 ABG O2 Saturation 97.0 % (90-100) 01/16/17 19:05 ABG Base Excess 2.2 mmol/L (-2.0-2.0) H 01/16/17 19:05 Aayush Test Pos 01/16/17 19:05 A-a Gradient 73.0 mmHg 01/16/17 19:05 FiO2 32.000 01/16/17 19:05 Blood Gas Comments Shahram well aw 01/16/17 19:05 Sodium 142 mmol/L (136-145) 01/19/17 03:50 Corrected Sodium TNP 01/19/17 03:50 Potassium 4.5 mmol/L (3.5-5.1) 01/19/17 03:50 Chloride 108 mmol/L (98-107) H 01/19/17 03:50 Carbon Dioxide 30.2 mmol/L (21-32) 01/19/17 03:50 BUN 17 mg/dL (7-18) 01/19/17 03:50 Creatinine 1.68 mg/dL (0.55-1.02) H 01/19/17 03:50 Est GFR (MDRD) Af Amer 38 (>60) L 01/19/17 03:50 Est GFR (MDRD) Non-Af 32 (>60) L 01/19/17 03:50 Glucose 100 mg/dL (65-99) H 01/19/17 03:50 Calcium 7.9 mg/dL (8.5-10.1) L 01/19/17 03:50 Blood Type O POSITIVE 01/19/17 09:15 Antibody Screen Negative 01/19/17 09:15 Crossmatch See Detail 01/19/17 09:15 - Plan (1) S/P total knee arthroplasty Status: Acute Qualifiers: Laterality: L Plan: CONTINUE WOUND CARE, PT, AM LABS (2) CHF (congestive heart failure) Status: Chronic Qualifiers: Congestive heart failure type: C Congestive heart failure chronicity: C (3) COPD (chronic obstructive pulmonary disease) Status: Chronic Qualifiers: COPD type: C Chronic bronchitis type: C Emphysema type: E (4) GERD (gastroesophageal reflux disease) Status: Chronic Qualifiers: Esophagitis presence: E (5) HTN (hypertension) Status: Chronic Qualifiers: Hypertension type: H (6) Hypothyroidism Status: Chronic Qualifiers: Hypothyroidism type: H (7) Anemia Status: Acute Qualifiers: Anemia type: A Iron deficiency anemia type: I Vitamin B12 deficiency anemia type: V Folate deficiency anemia type: F Bone marrow failure anemia type: B Hemolytic anemia type: H Other causes of anemia: O Chronic kidney disease stage: C Plan: hemoglobin 7.8 this a.m. Type and cross and transfuse 2 units of packed red blood cells administer Lasix IV after first unit. Repeat CBC CMP and chest x-ray every morning
[2017-01-19] MEDS: SYNTHROID 50 mcg TAB PO SCH (18:21)
[2017-01-19] MEDS: PHENERGAN TAB 25 MG PO PRN (18:21)
[2017-01-19] MEDS: COLACE CAP 100 MG PO SCH (22:09)
[2017-01-19] MEDS: MILK OF MAGNESIA PO SCH (22:12)
[2017-01-19] MEDS: ZOFRAN TAB 4 MG PO PRN (22:23)
[2017-01-20 06:02] LABS: ALANINE AMINOTRANSFERASE 18 Units/L (12-78); ALBUMIN 2.3 g/dL (3.4-5.0); ALKALINE PHOSPHATASE 82 Units/L (46-116); ASPARTATE AMINO TRANSFERASE 12 Units/L (15-37); BLOOD UREA NITROGEN 18 mg/dL (7-18); CALCIUM 8.6 mg/dL (8.5-10.1); CARBON DIOXIDE 31.4 mmol/L (21-32); CHLORIDE 108 mmol/L (98-107); CREATININE 1.59 mg/dL (0.55-1.02); GLUCOSE 92 mg/dL (65-99); SODIUM 143 mmol/L (136-145); TOTAL PROTEIN 6.1 g/dL (6.4-8.2); eGFR BLACK RACES 41 (>60); eGFR NON BLACK RACES 34 (>60)
[2017-01-20 06:11] LABS: BASOPHILS # (AUTO) 0.1 X10^3/uL (0.0-0.1); BASOPHILS % (AUTO) 0.8 % (0.2-1.0); EOSINOPHILS # (AUTO) 0.6 x10^3/uL (0.0-0.2); EOSINOPHILS % (AUTO) 4.6 % (0.9-2.9); HEMATOCRIT 32.3 % (36.0-47.0); HEMOGLOBIN 10.9 g/dL (12.0-16.0); LYMPHOCYTES % (AUTO) 16.1 % (21.0-51.0); MEAN CORPUSCULAR HEMOGLOBIN 28.8 pg (27.0-34.0); MEAN CORPUSCULAR HGB CONC 33.6 g/dL (33.0-35.0); MEAN CORPUSCULAR VOLUME 85.8 fL (80.0-100.0); MEAN PLATELET VOLUME 8.1 fL (7.4-11.0); MONOCYTES # (AUTO) 0.8 x10^3/uL (0.3-0.8); MONOCYTES % (AUTO) 6.6 % (0.0-13.0); NEUTROPHILS # (AUTO) 8.8 x10^3/uL (2.2-4.8); NEUTROPHILS % (AUTO) 71.9 % (42.0-75.0); PLATELET COUNT 200 X10^3/uL (150.0-450.0); RED BLOOD COUNT 3.77 X10^6/uL (3.5-5.4); RED CELL DISTRIBUTION WIDTH 15.3 % (11.6-16.5); WHITE BLOOD COUNT 12.2 X10^3/uL (3.6-10.0)
--- NOTE | 2017-01-20 06:15 | RAD ---
HISTORY: Shortness of breath Study: Single-view chest Comparison: January 17, 2017 Findings: The right-sided PICC line has its tip barely within the subclavian vein. This should be advanced abo ut 8 to 10 centimeters in order to be more effective and remain within the venous system. Trachea is midline. Heart size is normal. There is atherosclerotic calcification and uncoiling of the aortic a rch. Left lung is clear. Improving aeration is noted in the right lung base with a linear subsegment al band of atelectasis remaining. No dense consolidation, pleural fluid or pneumothorax is seen. Oss eous structures are intact. IMPRESSION: Right-sided PICC line has its tip barely within the subclavian vein. This should be advanced about i n order to be more effective and remain within the venous system. Improving aeration in the right lung base. Reported By:
[2017-01-20] MEDS: NORCO 10/325 TAB PO PRN ×3 (07:19→20:15)
[2017-01-20] MEDS: ZANAFLEX PO PRN ×2 (07:20→18:32)
[2017-01-20] MEDS: ZOFRAN TAB 4 MG PO PRN ×2 (07:20→13:50)
[2017-01-20] MEDS: ZYLOPRIM PO SCH (09:35)
[2017-01-20] MEDS: LOVENOX INJ 30 MG SYR SC SCH ×2 (09:36→20:15)
[2017-01-20] MEDS: REMERON PO SCH (09:36)
[2017-01-20] MEDS: TOPROL XL PO SCH ×2 (09:36→20:15)
[2017-01-20] MEDS: PriLOSEC PO SCH ×2 (09:36→20:15)
[2017-01-20] MEDS: NYSTATIN POWDER TOP SCH ×2 (09:40→20:15)
--- NOTE | 2017-01-20 10:39 | RAD ---
HISTORY: Left total knee replacement on Monday January 16, 2017 Study: Two-view chest. Comparison: No priors Technique: AP and cross table lateral views the left knee provided. Findings: Midline skin clips are present anteriorly. A suprapatellar joint effusion is present. There is evide nce of a left total knee arthroplasty with femoral, tibial and patellar components. No evidence of f racture, dislocation or prosthetic loosening is seen. IMPRESSION: Evidence of recent left knee arthroplasty as described. No fracture or dislocation or prosthetic loo sening is seen. There is a suprapatellar joint effusion. Reported By:
[2017-01-20] MEDS: CLEOCIN PO SCH ×3 (13:49→20:14)
[2017-01-20] MEDS: SYNTHROID 50 mcg TAB PO SCH (17:26)
[2017-01-20] MEDS: NS 1000 ML 1,000 ML IV SCH (17:30)
[2017-01-20] MEDS: COLACE CAP 100 MG PO SCH (20:14)
[2017-01-20] MEDS: PHENERGAN TAB 25 MG PO PRN (20:15)
[2017-01-20] MEDS: MILK OF MAGNESIA PO SCH (20:15)
[2017-01-21] MEDS: ZANAFLEX PO PRN ×3 (00:34→17:45)
[2017-01-21] MEDS: NORCO 10/325 TAB PO PRN ×3 (03:31→20:30)
[2017-01-21] MEDS: ZOFRAN TAB 4 MG PO PRN ×3 (03:31→20:31)
[2017-01-21 05:20] LABS: BASOPHILS # (AUTO) 0.1 X10^3/uL (0.0-0.1); BASOPHILS % (AUTO) 1.2 % (0.2-1.0); EOSINOPHILS # (AUTO) 0.5 x10^3/uL (0.0-0.2); EOSINOPHILS % (AUTO) 4.7 % (0.9-2.9); HEMATOCRIT 28.5 % (36.0-47.0); HEMOGLOBIN 9.5 g/dL (12.0-16.0); LYMPHOCYTES # (AUTO) 2.2 X10^3/uL (1.3-2.9); LYMPHOCYTES % (AUTO) 22.1 % (21.0-51.0); MEAN CORPUSCULAR HEMOGLOBIN 29.2 pg (27.0-34.0); MEAN CORPUSCULAR HGB CONC 33.5 g/dL (33.0-35.0); MEAN CORPUSCULAR VOLUME 87.3 fL (80.0-100.0); MEAN PLATELET VOLUME 7.8 fL (7.4-11.0); MONOCYTES # (AUTO) 0.7 x10^3/uL (0.3-0.8); MONOCYTES % (AUTO) 7.4 % (0.0-13.0); NEUTROPHILS # (AUTO) 6.4 x10^3/uL (2.2-4.8); NEUTROPHILS % (AUTO) 64.6 % (42.0-75.0); PLATELET COUNT 195 X10^3/uL (150.0-450.0); RED BLOOD COUNT 3.26 X10^6/uL (3.5-5.4); RED CELL DISTRIBUTION WIDTH 14.8 % (11.6-16.5); WHITE BLOOD COUNT 9.8 X10^3/uL (3.6-10.0)
[2017-01-21 05:29] LABS: ALANINE AMINOTRANSFERASE 15 Units/L (12-78); ALKALINE PHOSPHATASE 70 Units/L (46-116); ASPARTATE AMINO TRANSFERASE 12 Units/L (15-37); BLOOD UREA NITROGEN 16 mg/dL (7-18); CALCIUM 8.1 mg/dL (8.5-10.1); CARBON DIOXIDE 31.1 mmol/L (21-32); CHLORIDE 108 mmol/L (98-107); COR CA(FOR HYPOALB) 9.7 mg/dL (8.5-10.1); CREATININE 1.64 mg/dL (0.55-1.02); GLUCOSE 101 mg/dL (65-99); SODIUM 142 mmol/L (136-145); TOTAL PROTEIN 5.5 g/dL (6.4-8.2); eGFR BLACK RACES 39 (>60); eGFR NON BLACK RACES 33 (>60)
[2017-01-21 06:13] LABS: ERYTHROCYTE SEDIMENTATION RATE 58 MM/HOUR (0-20)
[2017-01-21] MEDS ORDERED: RIFADIN CAP 300 MG PO ONE (08:57)
[2017-01-21] MEDS: LOVENOX INJ 30 MG SYR SC SCH ×2 (09:11→20:30)
[2017-01-21] MEDS: ZYLOPRIM PO SCH (09:12)
[2017-01-21] MEDS: REMERON PO SCH (09:12)
[2017-01-21] MEDS: NYSTATIN POWDER TOP SCH ×2 (09:12→20:32)
[2017-01-21] MEDS: CLEOCIN PO SCH ×4 (09:12→20:29)
[2017-01-21] MEDS: PriLOSEC PO SCH ×2 (09:12→20:30)
[2017-01-21] MEDS: TOPROL XL PO SCH ×2 (09:12→20:31)
[2017-01-21] MEDS: TORADOL TAB PO PRN (11:58)
[2017-01-21] MEDS: RIFADIN CAP 300 MG PO SCH ×2 (12:26→21:51)
[2017-01-21] MEDS: SYNTHROID 50 mcg TAB PO SCH (17:41)
[2017-01-21] MEDS: MILK OF MAGNESIA PO SCH (20:29)
[2017-01-21] MEDS: NS 1000 ML 1,000 ML IV SCH ×2 (20:29→21:51)
[2017-01-21] MEDS: COLACE CAP 100 MG PO SCH (20:31)
[2017-01-22] MEDS: TORADOL TAB PO PRN ×3 (03:23→20:22)
[2017-01-22] MEDS: NORCO 10/325 TAB PO PRN ×3 (07:02→23:11)
[2017-01-22] MEDS: ZOFRAN TAB 4 MG PO PRN ×3 (07:03→23:11)
[2017-01-22 07:20] LABS: ALANINE AMINOTRANSFERASE 15 Units/L (12-78); ALBUMIN 2.4 g/dL (3.4-5.0); ALKALINE PHOSPHATASE 82 Units/L (46-116); ASPARTATE AMINO TRANSFERASE 15 Units/L (15-37); BLOOD UREA NITROGEN 17 mg/dL (7-18); CALCIUM 8.4 mg/dL (8.5-10.1); CARBON DIOXIDE 29.6 mmol/L (21-32); CHLORIDE 107 mmol/L (98-107); COR CA(FOR HYPOALB) 9.7 mg/dL (8.5-10.1); CREATININE 1.76 mg/dL (0.55-1.02); GLUCOSE 104 mg/dL (65-99); SODIUM 141 mmol/L (136-145); TOTAL PROTEIN 6.3 g/dL (6.4-8.2); eGFR BLACK RACES 36 (>60); eGFR NON BLACK RACES 30 (>60)
[2017-01-22 08:40] LABS: ERYTHROCYTE SEDIMENTATION RATE 75 MM/HOUR (0-20)
[2017-01-22 08:43] LABS: BASOPHILS # (AUTO) 0.1 X10^3/uL (0.0-0.1); RED CELL DISTRIBUTION WIDTH 14.7 % (11.6-16.5)
[2017-01-22 08:46] LABS: BASOPHILS % (AUTO) 1.1 % (0.2-1.0); EOSINOPHILS # (AUTO) 0.7 x10^3/uL (0.0-0.2); EOSINOPHILS % (AUTO) 6.3 % (0.9-2.9); HEMATOCRIT 31.8 % (36.0-47.0); HEMOGLOBIN 10.5 g/dL (12.0-16.0); LYMPHOCYTES # (AUTO) 1.9 X10^3/uL (1.3-2.9); LYMPHOCYTES % (AUTO) 18.8 % (21.0-51.0); MEAN CORPUSCULAR HGB CONC 33.1 g/dL (33.0-35.0); MEAN CORPUSCULAR VOLUME 87.6 fL (80.0-100.0); MEAN PLATELET VOLUME 9.1 fL (7.4-11.0); MONOCYTES # (AUTO) 0.7 x10^3/uL (0.3-0.8); MONOCYTES % (AUTO) 7.1 % (0.0-13.0); NEUTROPHILS # (AUTO) 6.9 x10^3/uL (2.2-4.8); NEUTROPHILS % (AUTO) 66.7 % (42.0-75.0); PLATELET COUNT 216 X10^3/uL (150.0-450.0); RED BLOOD COUNT 3.63 X10^6/uL (3.5-5.4)
[2017-01-22] MEDS: RIFADIN CAP 300 MG PO SCH ×2 (08:56→20:24)
[2017-01-22] MEDS: ZYLOPRIM PO SCH (08:57)
[2017-01-22] MEDS: TOPROL XL PO SCH ×2 (08:57→20:23)
[2017-01-22] MEDS: CLEOCIN PO SCH ×4 (08:57→20:23)
[2017-01-22 08:58] LABS: PLATELET MORPHOLOGY COMMENT NORMAL (NORMAL); WHITE BLOOD COUNT 10.8 X10^3/uL (3.6-10.0)
[2017-01-22] MEDS: PriLOSEC PO SCH ×2 (08:58→20:23)
[2017-01-22] MEDS: LOVENOX INJ 30 MG SYR SC SCH ×2 (08:58→20:24)
[2017-01-22] MEDS: REMERON PO SCH (08:58)
[2017-01-22] MEDS: NYSTATIN POWDER TOP SCH ×2 (09:00→20:24)
[2017-01-22] MEDS: SYNTHROID 50 mcg TAB PO SCH ×2 (14:55→17:16)
[2017-01-22] MEDS: NS 1000 ML 1,000 ML IV SCH (20:21)
[2017-01-22] MEDS: COLACE CAP 100 MG PO SCH (20:23)
[2017-01-22] MEDS: MILK OF MAGNESIA PO SCH (20:23)
[2017-01-22] MEDS: ZANAFLEX PO PRN (23:11)
[2017-01-23 04:57] LABS: ALANINE AMINOTRANSFERASE 15 Units/L (12-78); ALBUMIN 2.2 g/dL (3.4-5.0); ALKALINE PHOSPHATASE 78 Units/L (46-116); ASPARTATE AMINO TRANSFERASE 17 Units/L (15-37); BLOOD UREA NITROGEN 16 mg/dL (7-18); CALCIUM 8.3 mg/dL (8.5-10.1); CARBON DIOXIDE 32.4 mmol/L (21-32); CHLORIDE 109 mmol/L (98-107); COR CA(FOR HYPOALB) 9.7 mg/dL (8.5-10.1); CREATININE 1.69 mg/dL (0.55-1.02); GLUCOSE 106 mg/dL (65-99); SODIUM 142 mmol/L (136-145); TOTAL PROTEIN 5.7 g/dL (6.4-8.2); eGFR BLACK RACES 38 (>60); eGFR NON BLACK RACES 31 (>60)
[2017-01-23 06:16] LABS: BASOPHILS # (AUTO) 0.1 X10^3/uL (0.0-0.1); BASOPHILS % (AUTO) 1.3 % (0.2-1.0); EOSINOPHILS # (AUTO) 0.6 x10^3/uL (0.0-0.2); EOSINOPHILS % (AUTO) 6.3 % (0.9-2.9); HEMATOCRIT 28.4 % (36.0-47.0); HEMOGLOBIN 9.5 g/dL (12.0-16.0); LYMPHOCYTES # (AUTO) 2.2 X10^3/uL (1.3-2.9); LYMPHOCYTES % (AUTO) 23.8 % (21.0-51.0); MEAN CORPUSCULAR HEMOGLOBIN 29.4 pg (27.0-34.0); MEAN CORPUSCULAR HGB CONC 33.4 g/dL (33.0-35.0); MEAN CORPUSCULAR VOLUME 87.9 fL (80.0-100.0); MEAN PLATELET VOLUME 8.4 fL (7.4-11.0); MONOCYTES # (AUTO) 0.7 x10^3/uL (0.3-0.8); NEUTROPHILS # (AUTO) 5.5 x10^3/uL (2.2-4.8); NEUTROPHILS % (AUTO) 60.6 % (42.0-75.0); PLATELET COUNT 232 X10^3/uL (150.0-450.0); RED BLOOD COUNT 3.23 X10^6/uL (3.5-5.4); RED CELL DISTRIBUTION WIDTH 14.5 % (11.6-16.5)
[2017-01-23] MEDS: TORADOL TAB PO PRN ×2 (07:09→14:11)
[2017-01-23 07:11] LABS: ERYTHROCYTE SEDIMENTATION RATE 75 MM/HOUR (0-20)
[2017-01-23] MEDS: ZOFRAN TAB 4 MG PO PRN (08:40)
[2017-01-23] MEDS: NORCO 10/325 TAB PO PRN (08:41)
[2017-01-23] MEDS: REMERON PO SCH (08:41)
[2017-01-23] MEDS: TOPROL XL PO SCH (08:41)
[2017-01-23] MEDS: RIFADIN CAP 300 MG PO SCH (08:41)
[2017-01-23] MEDS: CLEOCIN PO SCH ×2 (08:41→13:55)
[2017-01-23] MEDS: ZYLOPRIM PO SCH (08:41)
[2017-01-23] MEDS: PriLOSEC PO SCH (08:42)
[2017-01-23] MEDS: NYSTATIN POWDER TOP SCH (08:42)
[2017-01-23] MEDS: LOVENOX INJ 30 MG SYR SC SCH (08:42)
[2017-01-23 12:14] VITALS: BP 140/76
--- NOTE | 2017-01-23 13:39 | PCM.DCPLAN ---
Discharge Summary - Admission Date Date of Admission: 01/16/17 - Discharge Date Discharge Date: 01/23/17 - Admission Diagnoses (1) S/P total knee arthroplasty Status: Acute (2) CHF (congestive heart failure) Status: Chronic (3) COPD (chronic obstructive pulmonary disease) Status: Chronic (4) GERD (gastroesophageal reflux disease) Status: Chronic (5) HTN (hypertension) Status: Chronic (6) Hypothyroidism Status: Chronic (7) Anemia Status: Acute - Discharge Diagnoses Discharge Diagnosis: same as admission - Discharge Medications Discharge Medications: Allopurinol [ZYLOPRIM tab 100 mg *] 100 mg PO DAILY 01/16/17 [History] Hydrocodone-Acet 10/325 mg [Marble 10/325 Tab] 1 tab PO Q6H PRN 01/16/17 [History ] Levothyroxine Sodium [SYNTHROID 50 mcg *] 1 tab PO DAILYAC 01/16/17 [History] Metoprolol Succinate [Toprol Xl] 25 mg PO BID 01/16/17 [History] Mirtazapine 15 mg PO DAILY 01/16/17 [History] Omeprazole [Prilosec] 20 mg PO BID 01/16/17 [History] Ondansetron HCl [Zofran Tab 4 mg] 4 mg PO DAILY PRN 01/16/17 [History] Tizanidine HCl [Zanaflex 4 mg] 4 mg PO QID PRN 01/16/17 [History] - Hospital Course Vital Signs: Temperature 98.4 F Pulse Rate [Left Brachial] 83 Pulse Rate [Right Brachial] 80 Pulse Rate 82 Respiratory Rate 20 Blood Pressure [Left Arm] 140/76 Blood Pressure [Right Arm] 164/72 Blood Pressure 131/70 O2 Sat by Pulse Oximetry 97 Latest Lab Results: Laboratory Last Values WBC 9.0 X10^3/uL (3.6-10.0) 01/23/17 03:30 RBC 3.23 X10^6/uL (3.5-5.4) L 01/23/17 03:30 Hgb 9.5 g/dL (12.0-16.0) L 01/23/17 03:30 Hct 28.4 % (36.0-47.0) L 01/23/17 03:30 MCV 87.9 fL (80.0-100.0) 01/23/17 03:30 MCH 29.4 pg (27.0-34.0) 01/23/17 03:30 MCHC 33.4 g/dL (33.0-35.0) 01/23/17 03:30 RDW 14.5 % (11.6-16.5) 01/23/17 03:30 Plt Count 232 X10^3/uL (150.0-450.0) 01/23/17 03:30 Plt Count Comment Adequate (ADEQUATE) 01/22/17 06:40 MPV 8.4 fL (7.4-11.0) 01/23/17 03:30 Neut % 60.6 % (42.0-75.0) 01/23/17 03:30 Lymph % 23.8 % (21.0-51.0) 01/23/17 03:30 [place] % 8.0 % (0.0-13.0) 01/23/17 03:30 Eos % 6.3 % (0.9-2.9) H 01/23/17 03:30 Baso % 1.3 % (0.2-1.0) H 01/23/17 03:30 Neut # 5.5 x10^3/uL (2.2-4.8) H 01/23/17 03:30 Lymph # 2.2 X10^3/uL (1.3-2.9) 01/23/17 03:30 [place] # 0.7 x10^3/uL (0.3-0.8) 01/23/17 03:30 Eos # 0.6 x10^3/uL (0.0-0.2) H 01/23/17 03:30 Baso # 0.1 X10^3/uL (0.0-0.1) 01/23/17 03:30 Absolute Nucleated RBC 0.0 /100WBC 01/23/17 03:30 Plt Clumps, EDTA Few 01/17/17 07:15 Plt Morphology Comment Normal (NORMAL) 01/22/17 06:40 RBC Morphology Normal (NORMAL) 01/22/17 06:40 Hypochromasia Slight A 01/19/17 03:50 ESR 75 MM/HOUR (0-20) H 01/23/17 03:30 Sample Site Right radial 01/16/17 19:05 ABG pH 7.350 (7.35-7.45) 01/16/17 19:05 ABG pCO2 52.0 mmHg (35.0-45.0) H* 01/16/17 19:05 ABG pO2 90.0 mmHg (80.0-100.0) 01/16/17 19:05 ABG HCO3 28.7 mmol/L (22-26) H 01/16/17 19:05 ABG O2 Saturation 97.0 % (90-100) 01/16/17 19:05 ABG Base Excess 2.2 mmol/L (-2.0-2.0) H 01/16/17 19:05 Aayush Test Pos 01/16/17 19:05 A-a Gradient 73.0 mmHg 01/16/17 19:05 FiO2 32.000 01/16/17 19:05 Blood Gas Comments Shahram well aw 01/16/17 19:05 Sodium 142 mmol/L (136-145) 01/23/17 03:30 Corrected Sodium TNP 01/23/17 03:30 Potassium 4.5 mmol/L (3.5-5.1) 01/23/17 03:30 Chloride 109 mmol/L (98-107) H 01/23/17 03:30 Carbon Dioxide 32.4 mmol/L (21-32) H 01/23/17 03:30 BUN 16 mg/dL (7-18) 01/23/17 03:30 Creatinine 1.69 mg/dL (0.55-1.02) H 01/23/17 03:30 Est GFR (MDRD) Af Amer 38 (>60) L 01/23/17 03:30 Est GFR (MDRD) Non-Af 31 (>60) L 01/23/17 03:30 Glucose 106 mg/dL (65-99) H 01/23/17 03:30 Calcium 8.3 mg/dL (8.5-10.1) L 01/23/17 03:30 Corrected Calcium 9.7 mg/dL (8.5-10.1) 01/23/17 03:30 Total Bilirubin 0.80 mg/dL (0.2-1.0) 01/23/17 03:30 AST 17 Units/L (15-37) 01/23/17 03:30 ALT 15 Units/L (12-78) 01/23/17 03:30 Alkaline Phosphatase 78 Units/L (46-116) 01/23/17 03:30 C-Reactive Protein 87.60 mg/L (0-3.0) H 01/23/17 03:30 Total Protein 5.7 g/dL (6.4-8.2) L 01/23/17 03:30 Albumin 2.2 g/dL (3.4-5.0) L 01/23/17 03:30 Globulin 3.5 g/dL (2.5-4.5) 01/23/17 03:30 Albumin/Globulin Ratio 0.6 Ratio (1.1-2.1) L 01/23/17 03:30 Blood Type O POSITIVE 01/19/17 09:15 Antibody Screen Negative 01/19/17 09:15 Crossmatch See Detail 01/19/17 09:15 Hospital Course: Patient is a 76-year-old black female who was admitted for total knee replacement. Immediately after surgery patient was on a [employer] pump and had some respiratory depression. Patient was moved to ICU gradually tapered off of pain pump, she tolerated by mouth medication fine. Patient's respiratory status was stable she was moved to the floor. Patient was noted to have a drop in hemoglobin on 720 and was transfused packed red blood cells. Patient remained hemodynamically stable, and pain controlled. Patient tolerated physical therapy , however Vladimir morning 721 patient was noted to have increased redness and localized edema and complained of increased pain. Patient was evaluated by Dr. Quinn and was started on clindamycin IV. Patient received IV antibiotics after the weekend patient's hemoglobin this morning at a stable white count is 9.0. Patient's pain is controlled. Patient tolerated physical therapy well and was released per Dr. Quinn to go home. Patient was instructed to follow- up with him in one week and follow-up with PCP in 1-2 weeks for hospital follow- up. Patient was admitted to home health services for in-home physical therapy patient instructed to resume home medications and report any signs of infection increased redness swelling pain and fever patient verbalized understanding. - Discharge Plan Disposition: 01 HOME, SELF-CARE Condition: Stable - Follow ups/Referrals Follow ups/Referrals: CHANI BENITES [CONSULTING PHYSICIAN] - - Instructions Instructions: Fall Prevention in the Home, [id number], Chronic Obstructive Pulmonary Disease, Total Knee Replacement, Care After, [id number], Walker Use , Heart Failure, [id number], Total Knee Replacement, Pain Medicine Instructions, Hypertension Additional Instructions: DC home with orthopedic postoperative plan of care, physical therapy, pain control, in-home health care. Resume home medications and follow-up with PCP in 1-2 weeks, follow-up with Dr. benites is scheduled Forms: Patient Portal
== END 2017-01-23 14:20 | disposition home health service (06) | DRG 554 ==
LOC: MED/SURG 08:00 → ICU 14:40 → MED/SURG 01-18 16:02
PROVIDERS: ADMIT Internal Medicine; ATTEND Internal Medicine
PROC: 05H633Z Insertion of Infusion Device into Left Subclavian Vein, Percutaneous Approach (ICD-10-PCS; 2017-01-16)
PROC: 0SRC0J9 Replacement of Right Knee Joint with Synthetic Substitute, Cemented, Open Approach (ICD-10-PCS; principal; 2017-01-16 09:00)
PROC: 05PY33Z Removal of Infusion Device from Upper Vein, Percutaneous Approach (ICD-10-PCS; 2017-01-17)
PROC: 05H533Z Insertion of Infusion Device into Right Subclavian Vein, Percutaneous Approach (ICD-10-PCS; 2017-01-17)
PROC: 30233N1 Transfusion of Nonautologous Red Blood Cells into Peripheral Vein, Percutaneous Approach (ICD-10-PCS; 2017-01-19)
PROC: 30233N1 Transfusion of Nonautologous Red Blood Cells into Peripheral Vein, Percutaneous Approach (ICD-10-PCS; 2017-01-19)
DX: M17.11 Unilateral primary osteoarthritis, right knee (principal); I87.2 Venous insufficiency (chronic) (peripheral); I10 Essential (primary) hypertension; E03.8 Other specified hypothyroidism; K21.9 Gastro-esophageal reflux disease without esophagitis; M13.89 Other specified arthritis, multiple sites; D64.89 Other specified anemias; J44.9 Chronic obstructive pulmonary disease, unspecified; I50.9 Heart failure, unspecified; R79.82 Elevated C-reactive protein (CRP); R70.0 Elevated erythrocyte sedimentation rate
CPT/HCPCS: 36415; 36556; 36600; 71010; 73560; 80048; 80053; 82803; 85025; 85652; 86140; 86850; 86900; 86901; 86922; 97535; 99100; A4216; A4222; P9016; Q0169; S0020; S0181; J0330; J1170; J1650; J1940; J2001; J2175; J2250; J2310; J2405; J2710; J2795; J3010; J3370; J3490; J7120